=== PATIENT | male | born 1980 | race Caucasian/White ===

== ENCOUNTER 2019-11-21 10:49 | Emergency (ER) | payer BC ==
[~2019-11-21] VITALS: Ht 167.6 cm; Wt 93.2 kg
[2019-11-21 11:10] VITALS: BP 150/97
[2019-11-21] MEDS ORDERED: dexamethasone 4mg tablet PO ONE (11:30)
[2019-11-21] MEDS ORDERED: ALBU8.5H8 IH (11:31)
[2019-11-21] MEDS ORDERED: TAM75C PO (11:31)
[2019-11-21] MEDS ORDERED: ONDA4TAB6 PO (11:31)
[2019-11-21] MEDS ORDERED: dexamethasone sod phosphate 10mg/ml inj PO ONE (11:40)
== END 2019-11-21 11:50 | disposition home or self-care (01) ==
LOC: ER 10:50
DX: J02.9 Acute pharyngitis, unspecified (principal); R07.89 Other chest pain; R51 Headache; G40.909 Epilepsy, unspecified, not intractable, without status epilepticus; Z79.899 Other long term (current) drug therapy
CPT/HCPCS: 93005; 99283; J1100

== ENCOUNTER 2020-08-01 22:28 | Emergency (ER) | payer BC ==
[~2020-08-01] VITALS: Ht 165.1 cm; Wt 82.0 kg
[~2020-08-01 22:28] MED LIST: ALBU8.5H8 IH; ONDA4TAB6 PO
[2020-08-01 22:32] VITALS: BP 126/77
[2020-08-01 23:25] LABS: BASOPHILS % (AUTO) 0.3 % (0-1); EOSINOPHILS % (AUTO) 0.1 % (0-6); HEMATOCRIT 44.8 % (42.0-52.0); HEMOGLOBIN 15.1 g/dl (14.0-17.9); LYMPHOCYTES # (AUTO) 1.1 X10'3 (1.1-4.8); MEAN CORPUSCULAR HEMOGLOBIN 31.3 PG (27.0-31.0); MEAN CORPUSCULAR HGB CONC 33.8 g/dL (33.0-36.5); MEAN CORPUSCULAR VOLUME 92.6 FL (78-98); MEAN PLATELET VOLUME 7.4 FL (7.4-10.4); MONOCYTES # (AUTO) 0.4 X10'3 (0-0.9); MONOCYTES % (AUTO) 6.6 % (2-12); NEUTROPHILS # (AUTO) 4.4 X10'3 (1.8-7.7); PLATELET COUNT 227 X10'3 (140-440); RED BLOOD COUNT 4.83 X10'6 (4.70-6.10); RED CELL DISTRIBUTION WIDTH 12.5 % (11.5-14.5); WHITE BLOOD COUNT 5.9 X10'3 (4.5-11.0)
[2020-08-01 23:42] LABS: ALANINE AMINOTRANSFERASE 21 U/L (12-78); ALBUMIN 3.6 G/DL (3.4-5.0); ALBUMIN/GLOBULIN RATIO 0.8 (1.1-1.5); ALKALINE PHOSPHATASE 70 IU/L (46-116); ANION GAP 7 (8-16); ASPARTATE AMINO TRANSFERASE 18 U/L (10-37); BILIRUBIN,TOTAL 0.6 MG/DL (0.1-1.0); BLOOD UREA NITROGEN 12 MG/DL (7-18); BUN/CREATININE RATIO 10.7 (5.4-32.0); CALCIUM 9.5 MG/DL (8.5-10.1); CHLORIDE 102 MMOL/L (99-107); CREATININE 1.12 MG/DL (0.60-1.10); GLUCOSE 106 MG/DL (70-104); POTASSIUM 3.4 MMOL/L (3.5-5.1); SODIUM 142 MMOL/L (135-145); TOTAL PROTEIN 8.2 G/DL (6.4-8.2); eGFR 72 ML/MIN
== END 2020-08-01 23:57 | disposition home or self-care (01) ==
LOC: ER 22:29
DX: U07.1 COVID-19 (principal); R07.89 Other chest pain; Z86.69 Personal history of other diseases of the nervous system and sense organs; Z79.899 Other long term (current) drug therapy
CPT/HCPCS: 36415; 71045; 80053; 84484; 85025; 93005; 99285